=== PATIENT | male | born 1965 | race Caucasian/White ===

== ENCOUNTER 2017-04-24 06:23 | Emergency (ER) | payer MEDICAID ==
[2017-04-24 08:20] VITALS: BP 118/67
== END 2017-04-24 08:20 | disposition home or self-care (01) ==
LOC: ED 06:23
DX: S60.122A Contusion of left index finger with damage to nail, initial encounter (principal); X58.XXXA Exposure to other specified factors, initial encounter; Y93.89 Activity, other specified; Y99.8 Other external cause status; Y92.89 Other specified places as the place of occurrence of the external cause
CPT/HCPCS: A4570; Q0092

== ENCOUNTER 2019-06-15 20:36 | Emergency (ER) | payer MEDICAID ==
[~2019-06-15] VITALS: Ht 170.2 cm; Wt 74.1 kg
[2019-06-16 03:30] VITALS: BP 144/80
== END 2019-06-16 03:32 | disposition home or self-care (01) ==
LOC: ED 20:36
DX: G44.209 Tension-type headache, unspecified, not intractable (principal)
CPT/HCPCS: J1100; J1200; J2765; J3475; J7030

== ENCOUNTER 2019-06-22 17:02 | Emergency (ER) | payer MEDICAID ==
[~2019-06-22] VITALS: Ht 188 cm; Wt 71.7 kg
[2019-06-22 17:09] VITALS: Ht 188 cm; Wt 71.7 kg
[2019-06-22 19:51] LABS: BASOPHIL % 0.8 % (0-2); PLATELET COUNT 261 x10^3mcL (130-400); RED CELL DISTRIBUTION WIDTH 11.8 % (11.5-14.5)
[2019-06-22 20:02] LABS: CALCIUM 8.5 mg/dL (8.5-10.1); CARBON DIOXIDE 31.1 mmol/L (21-32); CHLORIDE SERUM 103 mmol/L (98-107); CREATININE SERUM 0.8 mg/dL (0.7-1.3); GFR1 > 60 mL/min; GLUCOSE SERUM 92 mg/dL (74-106); POTASSIUM SERUM 4.4 mmol/L (3.5-5.1); SODIUM SERUM 140 mmol/L (136-145)
[2019-06-22 20:07] LABS: ALKALINE PHOSPHATASE 53 U/L (46-116); ALT/SGPT 27 U/L (16-63); AST/SGOT 14 U/L (15-37); BILIRUBIN TOTAL 2.4 mg/dL (0.20-1.00); LIPASE 150 IU/L (73-393); TOTAL PROTEIN, SERUM 7.2 g/dL (6.4-8.2)
[2019-06-22 21:46] VITALS: BP 110/74
== END 2019-06-22 21:46 | disposition home or self-care (01) ==
LOC: ED 17:02
PROVIDERS: Emergency Medicine
DX: R07.89 Other chest pain (principal); R42 Dizziness and giddiness; R07.0 Pain in throat
CPT/HCPCS: 36415